=== PATIENT | female | born 1985 | race Caucasian/White ===

== ENCOUNTER 2017-04-18 18:50 | Emergency (ER) | payer MEDICAID ==
[~2017-04-18] VITALS: Ht 165.1 cm; Wt 63.6 kg
[~2017-04-18 18:50] MED LIST: MOTRIN 600600 MG/TAB PO; PERCOCET 325 MG1 TA2 PO; PRENATAL1 TA7 PO
[2017-04-18 18:51] VITALS: TEMP 99
[2017-04-18 19:17] LABS: COLLECTION METHOD CLEAN CATCH
[2017-04-18 19:22] LABS: PH 6 (5-8); SQUAMOUS EPITHELIAL 0-2 /hpf; URINE APPEARANCE Clear; URINE BACTERIA None Seen /hpf; URINE BILIRUBIN Negative (NEGATIVE); URINE BLOOD 1+ (NEGATIVE); URINE COLOR Straw; URINE GLUCOSE Negative (NEGATIVE); URINE KETONE Trace (NEGATIVE); URINE LEUKOCYTE ESTERASE Negative (NEGATIVE); URINE PROTEIN(semi-quant) Negative (NEGATIVE); URINE RBC 0-2 /hpf; URINE UROBILINOGEN Negative (NEGATIVE); URINE WBC 0-2 /hpf
[2017-04-18 19:29] LABS: BASO # 0.1 (0.0-0.2); BASO % 0.4 % (0.0-2.0); EOS # 0.1 (0.0-0.7); EOS % 0.4 % (0-4.0); GRAN # 14.7 (1.4-6.5); GRAN % 85.7 % (42.2-75.2); HEMATOCRIT 37.7 % (37.0-47.0); HEMOGLOBIN 12.4 g/dl (12.5-16.0); LYMPH # 1.5 (1.2-3.4); LYMPH % 8.5 % (20.0-51.0); MEAN CELL VOLUME 88 fl (80.0-100.0); MEAN CORPUSCULAR HEMOGLOBIN 29 pg (27.0-31.0); MEAN CORPUSCULAR HGB CONC 33 g/dl (33.0-37.0); MEAN PLATELET VOLUME 10.4 fl (7.4-10.4); MONO # 0.8 (0.1-0.6); MONO % 4.6 % (1.7-9.3); PLATELET COUNT 338 K/mm3 (130-400); WHITE BLOOD COUNT 17.1 K/mm3 (4.8-10.8)
[2017-04-18 19:40] LABS: ADJUSTED CALCIUM 9.2 mg/dL (8.4-10.2); ALBUMIN 4.3 gm/dL (3.5-5.0); BILIRUBIN,TOTAL 0.6 mg/dL (0.0-1.0); C-REACTIVE PROTEIN 6.6 mg/dL (0.0-0.9); CALCIUM 9.4 mg/dL (8.4-10.2); CREATININE, serum 0.72 mg/dL (0.52-1.25); POTASSIUM 4.1 mmol/L (3.4-5.0); TOTAL PROTEIN 7.9 gm/dL (6.4-8.2)
[2017-04-18] MEDS ORDERED: FLAGYL500 MG PO (20:33)
[2017-04-18] MEDS ORDERED: AMOXICILLIN 8751 TAB PO (20:33)
[2017-04-18 21:10] VITALS: BP 102/66; PULSE 107
== END 2017-04-18 21:20 | disposition home or self-care (01) ==
LOC: COL.ER 18:50
PROVIDERS: Family Medicine
DX: N73.9 Female pelvic inflammatory disease, unspecified (principal); Z32.02 Encounter for pregnancy test, result negative
CPT/HCPCS: J0696; J7030; J7050; Q9967

== ENCOUNTER 2018-03-28 17:14 | Inpatient (IN) | payer MEDICAID ==
[2018-03-28] VITALS (10 sets, daily range): BP systolic 88–116; BP diastolic 52–77; PULSE 65–90; TEMP 98.1–98.4
[~2018-03-28] VITALS: Ht 165.1 cm; Wt 76.8 kg
[~2018-03-28 17:14] MED LIST changes: +AMOXICILLIN 8751 TAB PO; +FLAGYL500 MG PO
[2018-03-28 17:42] LABS: BASO # 0.1 (0.0-0.2); BASO % 0.5 % (0.0-2.0); EOS # 0.1 (0.0-0.7); EOS % 0.6 % (0-4.0); GRAN # 10.8 (1.4-6.5); GRAN % 78.1 % (42.2-75.2); HEMOGLOBIN 15.3 g/dl (12.5-16.0); LYMPH % 14.6 % (20.0-51.0); MEAN CELL VOLUME 87 fl (80.0-100.0); MEAN CORPUSCULAR HEMOGLOBIN 30 pg (27.0-31.0); MEAN CORPUSCULAR HGB CONC 34 g/dl (33.0-37.0); MEAN PLATELET VOLUME 11.4 fl (7.4-10.4); MONO # 0.8 (0.1-0.6); MONO % 5.8 % (1.7-9.3); PLATELET COUNT 260 K/mm3 (130-400); RED BLOOD COUNT 5.17 M/mm3 (4.10-5.30); REDCELL DISTRIBUTION WIDTH-CV 12.5 % (11.5-14.5)
[2018-03-29 05:00] VITALS: BP 88/46; PULSE 62; TEMP 97.6
[2018-03-29 08:30] VITALS: BP 94/52; PULSE 69; TEMP 98.4
[2018-03-29 12:33] VITALS: BP 102/59; PULSE 67; TEMP 97.7
[2018-03-29 17:00] VITALS: BP 94/55; PULSE 72; TEMP 97.9
[2018-03-29 20:00] VITALS: BP 101/62; PULSE 68; TEMP 97.5
[2018-03-29] MEDS ORDERED: MOTRIN 800800 MG/TAB PO (20:12)
[2018-03-29] MEDS ORDERED: PERCOCET 325 MG1 TA2 PO (20:13)
[2018-03-30 08:10] VITALS: BP 100/56; PULSE 67; TEMP 98.5
== END 2018-03-30 12:10 | disposition home or self-care (01) | DRG 807 ==
LOC: LDRO 17:14 → OB 17:19 → LDR 17:19 → OB 21:00
PROVIDERS: Obstetrics & Gynecology
PROC: 10E0XZZ Delivery of Products of Conception, External Approach (ICD-10-PCS; principal; 2018-03-28)
PROC: 0HQ9XZZ Repair Perineum Skin, External Approach (ICD-10-PCS; 2018-03-28)
DX: O34.211 Maternal care for low transverse scar from previous cesarean delivery (principal); Z37.0 Single live birth; Z3A.40 40 weeks gestation of pregnancy; O34.13 Maternal care for benign tumor of corpus uteri, third trimester; O70.0 First degree perineal laceration during delivery; O26.893 Other specified pregnancy related conditions, third trimester; Z67.41 Type O blood, Rh negative
CPT/HCPCS: J2590; J2791; J7120

== ENCOUNTER → 2020-06-06 | Outpatient (CLI) | payer MEDICAID ==
[~2020-06-06] MED LIST changes: +MOTRIN 800800 MG/TAB PO
== END ==
LOC: COL.RAD 13:10
DX: R22.1 Localized swelling, mass and lump, neck (principal)

== ENCOUNTER 2020-11-18 04:23 | Inpatient (IN) | payer MEDICAID ==
[2020-11-18] VITALS (20 sets, daily range): BP systolic 93–126; BP diastolic 52–74; PULSE 66–90; TEMP 97.5–98
[~2020-11-18] VITALS: Ht 165.1 cm; Wt 77.3 kg
--- NOTE | 2020-11-18 09:30 | NUR ---
BY DR HARDY AT 0930. TO MOTHERS CHEST, FOB CUT CORD PLACENTA SPON DELIVERED AT 0935. OXYTOCIN RUNNING AT 333 MLS. HR. FUNDAL MASSAGE PROVIDED. 2ND DEGREE REPAIRED BY DR HARDY. ICE PACK TO PERINEUM. STRAIGHT CATH PREFROMED BY DR HARDY. RECOVERY STARTED AT 1000.
[2020-11-18 10:06] LABS: BASO % 0.4 % (0.0-2.0); EOS # 0.1 (0.0-0.7); EOS % 0.8 % (0-4.0); GRAN % 84.2 % (42.2-75.2); HEMATOCRIT 43.6 % (37.0-47.0); HEMOGLOBIN 14.9 g/dl (12.5-16.0); LYMPH # 1.1 (1.2-3.4); LYMPH % 10.6 % (20.0-51.0); MEAN CELL VOLUME 87 fl (80.0-100.0); MEAN CORPUSCULAR HEMOGLOBIN 30 pg (27.0-31.0); MEAN CORPUSCULAR HGB CONC 34 g/dl (33.0-37.0); MEAN PLATELET VOLUME 11.4 fl (7.4-10.4); MONO # 0.4 (0.1-0.6); MONO % 3.5 % (1.7-9.3); PLATELET COUNT 183 K/mm3 (130-400); RED BLOOD COUNT 5.02 M/mm3 (4.10-5.30); REDCELL DISTRIBUTION WIDTH-CV 13.1 % (11.5-14.5)
[2020-11-19 03:14] VITALS: BP 102/70; PULSE 67; TEMP 98.5
[2020-11-19] MEDS ORDERED: MOTRIN 800800 MG/TAB PO (07:25)
[2020-11-19 07:30] VITALS: BP 96/55; PULSE 80; TEMP 98
== END 2020-11-19 12:45 | disposition home or self-care (01) | DRG 806 ==
LOC: LDRO 04:23 → LDR 04:47 → OB 04:47
PROVIDERS: Obstetrics & Gynecology; ADMIT Obstetrics & Gynecology
PROC: 10E0XZZ Delivery of Products of Conception, External Approach (ICD-10-PCS; principal; 2020-11-18)
PROC: 0KQM0ZZ Repair Perineum Muscle, Open Approach (ICD-10-PCS; 2020-11-18)
DX: O34.211 Maternal care for low transverse scar from previous cesarean delivery (principal); O99.12 Other diseases of the blood and blood-forming organs and certain disorders involving the immune mechanism complicating childbirth; Z37.0 Single live birth; D68.51 Activated protein C resistance; Z3A.38 38 weeks gestation of pregnancy; O34.13 Maternal care for benign tumor of corpus uteri, third trimester; O70.1 Second degree perineal laceration during delivery; O76 Abnormality in fetal heart rate and rhythm complicating labor and delivery; O26.893 Other specified pregnancy related conditions, third trimester
CPT/HCPCS: J2590; J2791; J7120

== ENCOUNTER 2022-09-04 18:36 | Inpatient (IN) | payer MEDICAID ==
[2022-09-03] VITALS (7 sets, daily range): BP systolic 96–110; BP diastolic 52–74; PULSE 79–88; TEMP 97.8–98.8
[2022-09-04] VITALS (15 sets, daily range): BP systolic 84–122; BP diastolic 49–74; PULSE 65–90; TEMP 97.8–98.7
[~2022-09-04] VITALS: Ht 165.1 cm; Wt 84.5 kg
[2022-09-04 19:46] LABS: BASO # 0.1 K/mm3 (0.0-0.2); BASO % 0.6 % (0.0-2.0); EOS # 0.2 K/mm3 (0.0-0.7); EOS % 2.2 % (0.0-4.0); GRAN # 8.1 K/mm3 (1.4-6.5); HEMATOCRIT 39.6 % (37.0-47.0); HEMOGLOBIN 13.9 g/dl (12.5-16.0); LYMPH # 1.5 K/mm3 (1.2-3.4); LYMPH % 14.3 % (20.0-51.0); MEAN CELL VOLUME 87 fl (80.0-100.0); MEAN CORPUSCULAR HEMOGLOBIN 30 pg (27-31); MEAN CORPUSCULAR HGB CONC 35 g/dl (33.0-37.0); MEAN PLATELET VOLUME 10.6 fl (7.4-10.4); MONO # 0.6 K/mm3 (0.1-0.6); MONO % 5.6 % (1.7-9.3); PLATELET COUNT 259 K/mm3 (130-400); RED BLOOD COUNT 4.57 M/mm3 (4.10-5.30); REDCELL DISTRIBUTION WIDTH-CV 12.9 % (11.5-14.5)
[2022-09-05] VITALS (12 sets, daily range): BP systolic 85–118; BP diastolic 48–98; PULSE 59–98; TEMP 97.4–98.8
[2022-09-05] MEDS ORDERED: MOTRIN 800800 MG/TAB PO (00:44)
--- NOTE | 2022-09-05 02:36 | NUR ---
patient placed semi-fowlers with peanut ball placed under legs.
--- NOTE | 2022-09-05 03:01 | NUR ---
Patient c/o feeling numb and yet is uncomfortable on her right side in hip area turned to right for epidural medication. States that is uncomfortable also.
--- NOTE | 2022-09-05 03:08 | NUR ---
Patient very uncomfortable. Moves from side to side. SVE done Dr Lewis called for delivery.
--- NOTE | 2022-09-05 03:15 | NUR ---
0007;dR Blanton CALLED [facility] DISCONTINUED. 1500CC OF CLEAR URINE OUT. PATIENT UP IN LATHOTOMY POSITION FOR DELIVERY.
--- NOTE | 2022-09-05 03:30 | NUR ---
pATIENT SLEEPING. AWAKENED TO DO ADDY CARE. DENIES DISCOMFORT AT THIS TIME.
--- NOTE | 2022-09-05 03:36 | NUR ---
PATIENT REQUEST TO NOT GET UP YET AND WANTS TO WAIT UNTIL 0330.
--- NOTE | 2022-09-05 04:41 | NUR ---
0313 Patient unable to move her left leg. Silvia hanley used. Patient to bathroom unable to void at this time. Instructed to call when she felt the need to void. Allison care done Robert instructed on use of. Moved to room 214 with Silvia talon. Patient tolerated well. Oriented to room.
--- NOTE | 2022-09-05 04:47 | NUR ---
0022 of male infant over a 2nd laceration repaired. Patient tolerated well. placed skin to skin on mother.
--- NOTE | 2022-09-05 05:30 | NUR ---
Patient up to bathroom. Able to move legs well. Voids large amount. Pericare done. Pt request Tylenol for perinum discomfort.
--- NOTE | 2022-09-05 05:34 | NUR ---
0055; Assisted baby to breast. Helped with positioning. Baby latches well. Good suck noted.
--- NOTE | 2022-09-05 09:38 | NUR ---
THIS NURSE ATTEMPTED TO ADMINISTER PATIENTS MOTRIN. AT THIS TIME PATIENT STATED SHE RECEIVED MOTRIN AROUND 545 FROM PRIOR SHIFT.
--- NOTE | 2022-09-05 09:56 | NUR ---
Initial visit attempt; Family resting, [employer] left card offering congratulations and God's blessings for the of their son and information regarding the availability of [facility] at our hospital.
== END 2022-09-06 12:47 | disposition home or self-care (01) | DRG 806 ==
LOC: LDRO 18:36 → LDR 19:25 → OB 19:25
PROVIDERS: ADMIT Obstetrics & Gynecology
PROC: 3E033VJ Introduction of Other Hormone into Peripheral Vein, Percutaneous Approach (ICD-10-PCS; principal; 2022-09-05)
PROC: 10E0XZZ Delivery of Products of Conception, External Approach (ICD-10-PCS; 2022-09-05)
PROC: 0KQM0ZZ Repair Perineum Muscle, Open Approach (ICD-10-PCS; 2022-09-05)
DX: O34.211 Maternal care for low transverse scar from previous cesarean delivery (principal); D68.51 Activated protein C resistance; Z37.0 Single live birth; O99.12 Other diseases of the blood and blood-forming organs and certain disorders involving the immune mechanism complicating childbirth; O34.13 Maternal care for benign tumor of corpus uteri, third trimester; D25.9 Leiomyoma of uterus, unspecified; Z3A.37 37 weeks gestation of pregnancy; O70.1 Second degree perineal laceration during delivery
CPT/HCPCS: J2590; J2791; J2795; J7120

== ENCOUNTER 2023-06-01 17:33 | Emergency (ER) | payer MEDICAID ==
[~2023-06-01] VITALS: Ht 165.1 cm; Wt 68.2 kg
[~2023-06-01 17:33] MED LIST changes: +ZITHROMAX Z PA250 MG PO
[2023-06-01 18:18] LABS: EOS % 0.3 % (0.0-4.0); GRAN # 2.1 K/mm3 (1.4-6.5); GRAN % 67.4 % (42.2-75.2); HEMATOCRIT 43.2 % (37.0-47.0); HEMOGLOBIN 14.7 g/dl (12.5-16.0); LYMPH # 0.5 K/mm3 (1.2-3.4); LYMPH % 15.2 % (20.0-51.0); MEAN CELL VOLUME 86 fl (80.0-100.0); MEAN CORPUSCULAR HEMOGLOBIN 29 pg (27-31); MEAN CORPUSCULAR HGB CONC 34 g/dl (33.0-37.0); MONO # 0.5 K/mm3 (0.1-0.6); MONO % 17.1 % (1.7-9.3); PLATELET COUNT 214 K/mm3 (130-400)
[2023-06-01 18:30] LABS: ALBUMIN 3.8 gm/dL (3.5-5.0); BILIRUBIN,TOTAL 0.3 mg/dL (0.2-1.2); CALCIUM 8.6 mg/dL (8.4-10.2); CREATININE, serum 0.82 mg/dL (0.57-1.11); POTASSIUM 3.9 mmol/L (3.5-4.5); TOTAL PROTEIN 7.3 gm/dL (6.2-8.1)
[2023-06-01 19:14] VITALS: BP 103/50; PULSE 90; TEMP 98.2
== END 2023-06-01 19:17 | disposition home or self-care (01) ==
LOC: COL.ER 17:33
PROVIDERS: Physician Assistant
DX: J10.1 Influenza due to other identified influenza virus with other respiratory manifestations (principal)
CPT/HCPCS: J7030